=== PATIENT | male | born 1950 | race African-American/Black ===

== ENCOUNTER 2019-09-13 20:48 | Emergency (ER) | payer MEDICARE ==
[~2019-09-13] VITALS: Ht 172.7 cm; Wt 61.4 kg
[2019-09-13 20:56] VITALS: Ht 172.7 cm; Wt 61.4 kg
[2019-09-13] MEDS ORDERED: CLEOCIN HCL300 MG PO (21:29)
[2019-09-13] MEDS ORDERED: NAPROSYN500 MG PO (21:29)
[2019-09-13 22:16] VITALS: BP 124/77
== END 2019-09-13 22:16 | disposition home or self-care (01) ==
LOC: D.ER 20:48
DX: K02.9 Dental caries, unspecified (principal)

== ENCOUNTER 2020-12-24 18:02 | Emergency (ER) | payer MEDICARE ==
[~2020-12-24] VITALS: Ht 172.7 cm; Wt 63.6 kg
[~2020-12-24 18:02] MED LIST: CLEOCIN HCL300 MG PO; MACROBID100 MG PO; METHOCARBAMOL500 MG PO; NAPROSYN500 MG PO; TORADOL10 MG PO
[2020-12-24 18:07] VITALS: Ht 172.7 cm; Wt 63.6 kg
[2020-12-24] MEDS ORDERED: BACTRIM DS TAB1 EAC1 PO (18:37)
[2020-12-24 18:51] LABS: ANION GAP 14.5 mmol/L (8-16); CALCIUM 8.8 mg/dL (8.5-10.1); CARBON DIOXIDE 23.9 mmol/L (21.0-32.0); CREATININE - SERUM 1.1 mg/dL (0.6-1.3); POTASSIUM - SERUM 3.4 mmol/L (3.5-5.1)
[2020-12-24 18:54] LABS: BASOPHILS 0.2 % (0-2); EOSINOPHILS 0.9 % (0-7); HEMATOCRIT 35.9 % (42.0-54.0); HEMOGLOBIN 11.9 g/dL (13.5-17.5); IMMATURE GRANULOCYTES 0.2 % (0-5); LYMPHOCYTE ABS# 1.76 10x3/uL (1.32-3.57); LYMPHOCYTES 16.3 % (15-50); MCHC 33.1 g/dL (31.0-37.0); MCV 96.5 fL (80.0-100.0); MEAN PLATELET VOLUME 9.3 fL (7.4-10.4); MONOCYTES 7.1 % (2-11); NEUTROPHIL ABS# 8.16 10x3/uL (1.78-5.38); NEUTROPHILS 75.3 % (40-80); PLATELET COUNT 234 10x3/uL (130-400); RBC 3.72 10x6/uL (4.20-6.10); RDW 13.4 % (11.5-14.5); WBC 10.8 10x3/uL (4.8-10.8)
[2020-12-24 18:55] LABS: ALBUMIN 3.6 g/dL (3.4-5.0); BILIRUBIN - TOTAL 0.63 mg/dL (0.2-1.3); PROTEIN - SERUM 7.7 g/dL (6.4-8.2)
[2020-12-24 19:15] LABS: BACTERIA MODERATE HPF (NONE SEEN); BILIRUBIN NEGATIVE (NEGATIVE); KETONE NEGATIVE (NEGATIVE); NITRITE POSITIVE (NEGATIVE); UROBILINOGEN NORMAL mg/dL (< 2); WHITE CELLS - URINE >50 HPF (0-1)
[2020-12-24 19:23] VITALS: BP 138/76
== END 2020-12-24 19:23 | disposition home or self-care (01) ==
LOC: D.ER 18:02
PROVIDERS: Family Medicine
DX: N39.0 Urinary tract infection, site not specified (principal)